=== PATIENT | female | born 2000 | race African-American/Black ===

== ENCOUNTER 2020-04-22 16:49 | Emergency (ER) | payer OTHER ==
[~2020-04-22] VITALS: Ht 160 cm; Wt 56.7 kg
[2020-04-22 17:16] VITALS: BP 123/82
[2020-04-22] MEDS ORDERED: ONDANSETRON ODT 4 MG TAB PO ONE (18:45)
[2020-04-22 19:23] LABS: Basophils # (auto) 0 10 ^3/uL (0-0.2); Basophils % (auto) 0.3 % (0.0-2.0); Eosinophils # (auto) 0 10 ^3/uL (0-0.8); Eosinophils % (auto) 0.4 % (0.0-7.0); Hematocrit 37.4 % (36.0-46.0); Hemoglobin 12.3 g/dL (12.2-16.2); Lymphocytes # (auto) 1.3 10 ^3/uL (0.4-5.4); Lymphocytes % (auto) 14.6 % (10.0-50.0); Mean Corpuscular Hemoglobin 28.5 pg (28.0-32.0); Mean Corpuscular Hgb Conc. 32.9 g/dL (32.0-36.0); Mean Corpuscular Volume 86.6 fL (80.0-100.0); Monocytes # (auto) 0.6 10 ^3/uL (0-1.3); Monocytes % (auto) 7.1 % (0.0-12.0); Neutrophils # (auto) 6.8 10 ^3/uL (1.6-8.6); Neutrophils % (auto) 77.6 % (37.0-80.0); Platelet Count (auto) 355 10^3/uL (140-450); Red Blood Cells 4.32 10^6/uL (4.0-5.20); Red Cell Distribution Width 15.7 % (11.8-14.3); White Blood Cell 8.8 10^3/uL (4.4-10.8)
[2020-04-22 19:36] LABS: Albumin 3.9 g/dL (3.4-5.0); Calcium 9.1 mg/dL (8.5-10.1); Potassium 3.7 mmol/L (3.5-5.1)
[2020-04-22 19:39] LABS: BUN/Creatinine Ratio 13.5; Bilirubin, Total 0.3 mg/dL (0.2-1.0)
[2020-04-22 20:27] LABS: Urine Bacteria FEW /hpf (None Seen); Urine Blood 1+ /uL (Negative); Urine Mucus FEW (None Seen); Urine Specific Gravity 1.013 (1.001-1.035); Urine WBC 2 /hpf (0 - 5)
== END 2020-04-22 20:45 | disposition home or self-care (01) ==
LOC: ER 16:49
DX: F10.920 Alcohol use, unspecified with intoxication, uncomplicated (principal); N39.0 Urinary tract infection, site not specified; E86.0 Dehydration
CPT/HCPCS: 36415; 80053; 81001; 81025; 85025; 99283; Q0162